=== PATIENT | female | born 1950 | race Caucasian/White ===

== ENCOUNTER 2018-06-04 07:06 | Emergency (ER) | payer OTHER, MEDICAID, MEDICARE ==
[2018-06-04] MEDS: ONDANSETRON 4MG/2ML VIAL (J2405) IV (08:00)
[2018-06-04] MEDS: MORPHINE 2 MG/ML 1ML SYRINGE (J2270) IV ×3 (08:01→10:37)
[2018-06-04 08:06] LABS: BASO # 0.1 10^3/uL (0.0-0.2); BASO % 0.7 % (0.0-1.0); EOS # 0.3 10^3/uL (0.0-0.50); EOS % 3.7 % (0.0-3.0); HEMATOCRIT 41.1 % (36.0-47.0); IMMATURE GRANULOCYTE % 0.5 % (0-3.0); LYMPH # 2.3 10^3/uL (1.5-4.5); LYMPH % 30.1 % (24.0-44.0); MEAN CORPUSCULAR HEMOGLOBIN 23.3 pg (27.0-33.0); MEAN CORPUSCULAR HGB CONC 31.6 g/dl (32.0-36.5); MEAN CORPUSCULAR VOLUME 73.7 fl (80.0-96.0); MONO # 0.5 10^3/uL (0.0-0.8); MONO % 6.5 % (0.0-5.0); NEUTROPHILS # 4.5 10^3/uL (1.8-7.7); NEUTROPHILS % 58.5 % (36.0-66.0); PLATELET COUNT, AUTOMATED 370 10^3/uL (150-450); RED BLOOD COUNT 5.58 10^6/uL (4.00-5.40); RED CELL DISTRIBUTION WIDTH 14.7 % (11.5-14.5); WHITE BLOOD COUNT 7.7 10^3/uL (4.0-10.0)
[2018-06-04 08:20] LABS: ALBUMIN 3.8 GM/DL (3.2-5.2); ALBUMIN/GLOBULIN RATIO 0.97 (1.00-1.93); ALKALINE PHOSPHATASE 88 U/L (45-117); ALT/SGPT 41 U/L (12-78); AMYLASE 51 U/L (25-115); ANION GAP 7 MEQ/L (8-16); AST/SGOT 29 U/L (7-37); BILIRUBIN,DIRECT 0.2 MG/DL (0.0-0.2); BILIRUBIN,TOTAL 0.6 MG/DL (0.2-1.0); BLOOD UREA NITROGEN 17 MG/DL (7-18); CALCIUM LEVEL 8.4 MG/DL (8.8-10.2); CARBON DIOXIDE LEVEL 28 MEQ/L (21-32); CHLORIDE LEVEL 106 MEQ/L (98-107); GLOMERULAR FILTRATION RATE > 60.0 (>45); GLUCOSE, FASTING 88 MG/DL (70-100); LIPASE 110 U/L (73-393); POTASSIUM SERUM 3.6 MEQ/L (3.5-5.1); SODIUM LEVEL 141 MEQ/L (136-145); TOTAL PROTEIN 7.7 GM/DL (6.4-8.2)
[2018-06-04] MEDS ORDERED: ISOVUE-370 76% 100ML VIAL (Q9967) As Ordered (08:25)
[2018-06-04 09:53] LABS: KETONE, URINE AUTO RFX NEGATIVE (NEGATIVE); LEUKOCYTE ESTERASE UR AUTO RFX TRACE (NEGATIVE); MUCUS, URINE RFX SMALL (NEGATIVE); NITRITE, URINE AUTO RFX NEGATIVE (NEGATIVE); RBC, URINE AUTO RFX 3 /HPF (0-3); SPECIFIC GRAVITY UR AUTO RFX >1.060 (1.002-1.035); SQUAM EPITHELIAL CELL UR AURFX 0 /HPF (0-6); WBC, URINE AUTO RFX 1 /HPF (0-3)
== END 2018-06-04 11:39 | disposition home or self-care (01) ==
LOC: M ED 07:06
DX: R10.31 Right lower quadrant pain (principal); Z98.84 Bariatric surgery status; E66.9 Obesity, unspecified; K57.30 Diverticulosis of large intestine without perforation or abscess without bleeding; Z90.49 Acquired absence of other specified parts of digestive tract; Z79.899 Other long term (current) drug therapy; Z88.0 Allergy status to penicillin
CPT/HCPCS: J2405

== ENCOUNTER → 2020-09-20 | Outpatient (CLI) | payer OTHER ==
[~2020-09-20] MED LIST: BUPR1TAB52 PO; CITA10TA5 PO; CYAN1000VL IM; FERR325T16 PO; NEUR300C PO; OMEP10CASR PO; TRAM50TA2 PO; ULTR50TA8 PO; VITA50005 PO
== END ==
LOC: M LABSMTC 07:58
PROVIDERS: ATTEND Anesthesiology
DX: Z01.812 Encounter for preprocedural laboratory examination (principal); Z20.828 Contact with and (suspected) exposure to other viral communicable diseases
CPT/HCPCS: C9803; U0003

== ENCOUNTER 2020-09-25 11:00 | Day surgery (SDC) | payer MEDICARE ==
[~2020-09-25] VITALS: Ht 152.4 cm; Wt 96.2 kg
[~2020-09-25 11:00] MED LIST changes: +LR 1,000 ML IV ONE; +ceFAZolin SOD 2 GM in IV 1 EA IV ONE
[2020-09-25] MEDS ORDERED: ceFAZolin 1GM VIAL (J0690 PER 500MG) As Ordered ONE (14:11)
[2020-09-25] MEDS ORDERED: LIDOCAINE 1% SDV 30ML VIAL As Ordered ONE (14:11)
[2020-09-25] MEDS ORDERED: fentaNYL 100 MCG/2 ML INJECTION (J3010) As Ordered ONE (14:45)
[2020-09-25] MEDS ORDERED: MIDAZOLAM INJ 2MG/2ML VIAL (J2250 PER 1MG) As Ordered ONE (14:45)
[2020-09-25] MEDS ORDERED: propofoL 200 MG/20 ML VIAL As Ordered ONE (14:45)
[2020-09-25 16:50] VITALS: BP 132/92
--- NOTE | 2020-09-25 17:36 | REP ---
INDICATION: REMOVAL OF INTERSTIM. COMPARISON: None. TECHNIQUE: Two views. 1 minutes 2nd of fluoroscopy time is reported. FINDINGS: A sequence of 2 last image hold fluoroscopically obtained spot radiographs of pelvis document neurostimulator lead position. IMPRESSION: Procedural imaging. <Electronically signed by Jeromy Gibson > 09/25/20 [id number]
--- NOTE | 2020-09-26 11:04 | RO ---
DATE OF OPERATION: 09/25/2020 PREOPERATIVE DIAGNOSIS AND INDICATIONS FOR SURGERY: Malfunctioning previous InterStim neurostimulator and abnormal lead impedance, and need for MRI. POSTOPERATIVE DIAGNOSIS: Malfunctioning previous InterStim neurostimulator and abnormal lead impedance, and need for MRI. There was, close to the battery a disruption in the sheathing over the lead and, of course, the same diagnosis. PROCEDURE: Removal of old InterStim lead and generator, and placement of new MRI-compatible InterStim lead and generator. This was placed on the patient's right side. SURGEON: Elba Martinez MD ANESTHESIA: Sedation and local. BRIEF DESCRIPTION OF PROCEDURE AND FINDINGS: Faviola was brought to the operating room. She was positioned prone in the usual fashion and prepped and draped, etc., and then lidocaine was injected over the site of the InterStim generator at the site of the previous wound, and the generator was removed. We could see a separation of the plastic sheathing of the lead over the wire just before the sort of rubbery plastic hub that it goes into, and so this is an atypical appearance of that. We then injected lidocaine and made an incision over the site of the previous lead placement just lateral to the sacrum over the site of lead placement into sacral nerve foramen 3, and then had to extend that incision about a centimeter so that we could examine under the tissues to find the lead on that end. We then transected the lead wire next to the generator so that we could back it up to this site over the lead placement insertion and then rolled that around hemostats so that we had decent connection to it, and then carefully and slowly under persistent traction, removed the lead. We were able to see all four of the distal leads and able to see the tines so the lead is out in its entirety and the patient is safe for MRI. We then, using that same entry site, placed a long InterStim needle, tested it, had a little bit of a projection medial to lateral from insertion to deeper points and so we placed a second one through the same with a little bit better trajectory to the same foramen, tested it, had good result; then placed the lead, tested that, again had good result response for the patient at low values as hoped. We then, with that lead tested and in place, carefully removed the external portion to expose the tines and then with the permanent lead in place and tines deployed, we then carefully buried that back out towards the pocket that had been there before, connected it to the new smaller, rechargeable MRI-compatible neurostimulator and then carefully modified the pocket that had been created there. We irrigated a few times with antibiotic-laden irrigant and we used 2-0 Vicryl to modify that pocket a little and then placed the new InterStim again closing the pocket around it and tested, had a good placement and closed the skin with 3-0 Vicryl and closed the skin over the sacrum as well with 3-0 Vicryl. We put Steri-Strips and dry, sterile dressing. Estimated blood loss for the procedure was maybe 5 mL. Fluid replacement was crystalloid. Complications: None. CONDITION AND DISPOSITION: Faviola tolerated the procedure well and was recovering in the recovery room in good condition. GILMER
== END 2020-09-25 16:50 | disposition home or self-care (01) ==
LOC: M SDC 11:00
PROVIDERS: ATTEND Obstetrics & Gynecology
DX: T85.111A Breakdown (mechanical) of implanted electronic neurostimulator of peripheral nerve electrode (lead), initial encounter (principal); T85.113A Breakdown (mechanical) of implanted electronic neurostimulator, generator, initial encounter; R15.9 Full incontinence of feces; Z79.899 Other long term (current) drug therapy; G47.30 Sleep apnea, unspecified; D64.9 Anemia, unspecified; F32.9 Major depressive disorder, single episode, unspecified; Z88.0 Allergy status to penicillin
CPT/HCPCS: 64561; 64585; 64590; 76000; C1787; C1897; J0690; J2250; J3010

== ENCOUNTER → 2022-10-12 | Outpatient (CLI) | payer OTHER ==
[~2022-10-12] MED LIST changes: -CITA10TA5 PO; +CITA10TA7 PO; +ERGO500029 PO; +FERR324T21 PO; -FERR325T16 PO; -LR 1,000 ML IV ONE; -VITA50005 PO; -ceFAZolin SOD 2 GM in IV 1 EA IV ONE
== END ==
LOC: M PLAIMG 10:09
PROVIDERS: ATTEND Orthopaedic Surgery
DX: M25.561 Pain in right knee (principal); Z96.651 Presence of right artificial knee joint

== ENCOUNTER → 2025-10-16 | Outpatient (CLI) | payer MEDICARE, MEDICAID ==
[~2025-10-16] MED LIST changes: +BUPR-670 PO; -BUPR1TAB52 PO
== END ==
LOC: M RAD 06:29
PROVIDERS: ATTEND Orthopaedic Surgery
DX: Z96.653 Presence of artificial knee joint, bilateral (principal)
CPT/HCPCS: 78315; A9503